=== PATIENT | female | born 1960 | race Caucasian/White ===

== ENCOUNTER 2017-12-07 21:43 | Inpatient (IN) | payer OTHER ==
[~2017-12-07] VITALS: Ht 162.6 cm; Wt 113.0 kg
[2017-12-08 03:34] VITALS: BP 132/73
[2017-12-08] MEDS ORDERED: PROTONIX40 MG PO (03:50)
[2017-12-08] MEDS ORDERED: TRAMADOL HCL50 MG PO (03:52)
[2017-12-08] MEDS ORDERED: NOVOLOG 10100 UNITS/ SC (04:00)
[2017-12-08] MEDS ORDERED: LISINOPRIL10 MG PO (04:01)
[2017-12-08] MEDS ORDERED: LYRICA100 MG PO (04:02)
[2017-12-08] MEDS ORDERED: LANTUS 10100 UNITS/ SC (04:04)
[2017-12-08] MEDS ORDERED: LIPITOR40 MG PO (04:05)
[2017-12-08] MEDS ORDERED: CARDIZEM CD240 MG PO (04:06)
[2017-12-08] MEDS ORDERED: METFORMIN HCL1000 MG PO (04:07)
[2017-12-08 08:07] VITALS: BP 110/51
[2017-12-08 16:03] VITALS: BP 119/68
[2017-12-09 08:00] VITALS: BP 131/61
[2017-12-09 16:12] VITALS: BP 116/70
[2017-12-10 07:49] VITALS: BP 129/62
[2017-12-10 12:16] LABS: HEMOGLOBIN A1c (GLYCOHEMOGLOB) 7.6 % (Below 5.7)
[2017-12-10 16:17] VITALS: BP 108/59
[2017-12-11 09:50] VITALS: BP 117/73
[2017-12-11 16:43] VITALS: BP 136/77
[2017-12-12 08:01] VITALS: BP 126/69
[2017-12-12] MEDS ORDERED: ARIPIPRAZOLE5 MG PO (10:02)
[2017-12-12] MEDS ORDERED: ASPIR-LOW81 MG PO (10:02)
[2017-12-12] MEDS ORDERED: BUPROPION XL300 MG PO (10:02)
[2017-12-12] MEDS ORDERED: BUTALB-APAP-CA1 EACH PO (10:02)
[2017-12-12] MEDS ORDERED: NOVOLOG 10100 UNITS/ SC (10:02)
[2017-12-12] MEDS ORDERED: LIPITOR40 MG PO (10:02)
[2017-12-12] MEDS ORDERED: LYRICA100 MG PO (10:02)
[2017-12-12] MEDS ORDERED: CARDIZEM CD240 MG PO (10:02)
[2017-12-12] MEDS ORDERED: LEVEMIR100 UNIT/2 SC (10:02)
[2017-12-12] MEDS ORDERED: TRAZODONE HCL50 MG PO (10:02)
[2017-12-12] MEDS ORDERED: METFORMIN HCL1000 MG PO (10:02)
[2017-12-12] MEDS ORDERED: PROTONIX40 MG PO (10:02)
[2017-12-12] MEDS ORDERED: GLUCOMETER MC (10:04)
[2017-12-12] MEDS ORDERED: TEST STRIPS MC (10:06)
== END 2017-12-12 13:14 | disposition home or self-care (01) | DRG 885 ==
LOC: 1WEST 21:43 → ENRESERV 12-08 02:16 → 1WEST 12-08 02:49
PROVIDERS: Physician Assistant; Psychiatry & Neurology Psychiatry
DX: F33.1 Major depressive disorder, recurrent, moderate (principal); R45.851 Suicidal ideations; I48.0 Paroxysmal atrial fibrillation; E66.01 Morbid (severe) obesity due to excess calories; I10 Essential (primary) hypertension; E11.9 Type 2 diabetes mellitus without complications; R51 Headache; E78.5 Hyperlipidemia, unspecified; F14.10 Cocaine abuse, uncomplicated; Z79.82 Long term (current) use of aspirin; Z90.49 Acquired absence of other specified parts of digestive tract; Z68.41 Body mass index [BMI] 40.0-44.9, adult; Z59.0 Homelessness; Z79.4 Long term (current) use of insulin
CPT/HCPCS: 82948; 83036; 97150 GO; 97166 GO; J1815